=== PATIENT | female | born 1945 | race Caucasian/White ===

== ENCOUNTER 2016-11-27 00:14 | Day surgery (SDC) | payer MEDICARE, OTHER ==
[~2016-11-27] VITALS: Ht 167.6 cm; Wt 81.3 kg
[2016-11-27] VITALS (10 sets, daily range): BP systolic 116–147; BP diastolic 62–87; PULSE 65–85; RESP 16–22; O2SAT 93–98
[~2016-11-27 00:14] MED LIST: AMOX-363 PO; ASPI-973 PO; CHLO50TA PO; CYAN-2 SL; GABA600T2 PO; GLUC100016 PO; LANS30CA PO; MELO-259 PO; NITR100 PO; PANT40TA2 PO; POTA10TA12 PO; POTA10TA19 PO; SIMV80TA4 PO; UBID300C PO; VENL37.587 PO; VENL75TA87 PO
[2016-11-27] MEDS ORDERED: Vancomycin Inj 1,000 MG in IV Premix 1 EACH IV ONE (06:00)
[2016-11-27] MEDS ORDERED: 0.9% Sodium Chloride 250 ML ONE (12:34)
[2016-11-27] MEDS ORDERED: Bupivacaine-MPF 0.5% 30 mL Inj ONE (12:34)
[2016-11-27] MEDS ORDERED: Heparin 5,000 Units/500 mL NS Premix IV ONE (12:34)
[2016-11-27] MEDS ORDERED: Vancomycin 1,000 mg Inj ONE (12:34)
[2016-11-27] MEDS ORDERED: Water for Injection 50 ML IV ONE (12:34)
[2016-11-27 12:36] LABS: EOSINOPHILS % (AUTO) 2.2 % (0-5); MONOCYTES % (AUTO) 18.1 % (4-12); Mean Corpuscular Hemoglobin 27.6 pg (27.0-35.0); Mean Corpuscular Volume 87.6 fL (81-100); NEUTROPHILS % (AUTO) 45.3 % (40-74); Platelet Count 216 bil/L (150-400)
[2016-11-27] MEDS ORDERED: Vancomycin 1,000 mg/200 mL D5W IV ONE (12:37)
[2016-11-27] MEDS ORDERED: fentaNYL-PF 50 mCg/mL 2 mL Inj ONE (13:45)
[2016-11-27] MEDS: 0.9% Sodium Chloride 1,000 ML IV SCH (14:47)
[2016-11-27] MEDS ORDERED: Ondansetron 2 mg/mL 2 mL Inj IVPUSH PRN (14:50)
--- NOTE | 2016-11-27 15:39 | OP ---
[address] [address] OPERATIVE REPORT PATIENT: FLOWER FAIR : 1945 MR#: [id number] ADMIT: 11/27/2016 JOB ID: [id number] DATE OF SURGERY: 11/27/2016 PREOPERATIVE DIAGNOSIS(ES): Mobitz II atrioventricular block. POSTOPERATIVE DIAGNOSIS(ES): Mobitz II atrioventricular block. PROCEDURES PERFORMED: 1. Dual-chamber pacemaker implantation. 2. Fluoroscopy. SURGEON: Ayaan Dickens MD, electrophysiology attending. DIRECTOR OF VOCATIONAL TRAINING: Yong Garcia. IMPLANTED DEVICES: 1. [place] [employer] Accolade MRI pulse generator model L331, serial #[id number]. 2. Right atrial lead [place] [employer] Ingevity MRI model 7741, serial #[id number]. 3. RV lead [place] [employer] Ingevity MRI model 7742, serial #[id number]. INDICATION: The patient is a pleasant 70-year-old woman with preserved LV function and intermittent Mobitz II AV block. After a discussion of the risks and benefits of pacemaker implantation, she opted to proceed. PROCEDURAL DESCRIPTION: Following informed signed consent, the patient was taken to the EP laboratory in a fasting, nonsedated state where she was prepped and draped in the usual sterile fashion. The left infraclavicular region was infiltrated with 40 cc of a 50/50 mixture of bupivacaine and lidocaine. Once adequate anesthesia had been achieved, a 3 cm incision was performed 2 cm below the left clavicle. Dissection was carried down to the pectoralis fascia, and a pocket was then fashioned using a combination of electrocautery and blunt dissection. Once adequate hemostasis had been achieved, access to the left axillary vein was gotten over the first rib with a micropuncture needle twice to deploy two 0.035, 3-mm J-guidewires. Over the first of these, a 6-Upper Sorbian tear-away sheath was advanced. Once the guidewire was removed, an active fixation lead was advanced to the RV outflow tract, ultimately the RV apex. The lead was affixed in position using its associated active fixation screw. It was connected to the external analyzer and demonstrated appropriately sensed R waves, impedance, capture threshold. The lead was checked in 10 V, and there was no evidence of diaphragmatic stimulation. Attention was now paid to placement of the right atrial lead. Over the other previously deployed J-guidewire, another 6-Upper Sorbian tear-away sheath was advanced. Once the guidewire was removed, an active fixation lead was advanced to the right atrial appendage. It was affixed in position using associated active fixation screw. The lead was connected to the external analyzer and demonstrated appropriately sensed P waves, impedance, capture threshold. Lead was checked in 10 V, and there was no evidence of diaphragmatic stimulation. Once the position and redundancy of both leads had been confirmed in multiple fluoroscopic views, the leads were anchored to the prepectoralis fascia using the associated anchoring sleeves and 2-0 Ethibond sutures. The pocket was then copiously with antibiotic solution. The leads were connected to a generator. The generator was placed in the pocket and affixed to the floor of the pocket using 1-0 Ti-Cron suture. The incision was then closed with running layers of absorbable suture. The wound was dressed with skin adhesive and a small dressing. At the end of the procedure, the needle, sponge, instrument counts were all correct. COMPLICATIONS: None. ESTIMATED BLOOD LOSS: Negligible. DEVICE MEASURED DATA: 1. Right atrial lead 5.9 mV, 1 V at 0.4 msec, 644 ohms. 2. RV lead 17.3 mV, 0.5 V at 0.4 msec, 810 ohms. FINAL PROGRAM PARAMETERS: DDD 60-130 beats per minute. IMPRESSION: Successful dual-chamber pacemaker implantation. PLAN: 1. Stat portable chest x-ray. 2. PA and lateral chest x-ray in the morning. 3. Device interrogation in the morning. 4. IV vancomycin through tomorrow. 5. Doxycycline 100 mg p.o. daily x7 days. 6. Wound check in one week. ATTENDING STATEMENT: Ayaan Dickens MD, electrophysiology attending, was present for and supervised/performed all aspects of this procedure.
--- NOTE | 2016-11-27 15:46 | DRSVH ---
PROCEDURE: X-RAY CHEST ONE VIEW, PORTABLE ([id number]) INDICATIONS: For new leads placed TECHNIQUE: One view of the chest was acquired. COMPARISON: [facility], , CHEST 1 VIEW, 09/19/2016, 6:53. FINDINGS: Surgical changes and devices: There is a new dual-lead cardiac pacemaker. Surgical clips are unchange d in the right axilla. Lungs and pleura: No pleural effusions or pneumothorax. Lungs are clear. Mediastinum: Mediastinal contours appear normal. Heart size is normal. Bones and chest wall: No suspicious bony lesions. Overlying soft tissues appear unremarkable. IMPRESSION: No acute cardiopulmonary findings. No pneumothorax after pacemaker placement. Dictated by: Candice Jaime M.D. on 11/27/2016 at 15:44 Approved by: Candcie Jaime M.D. on 11/27/2016 at 15:44
--- NOTE | 2016-11-27 17:02 | NUR ---
Report called to Kristen Lechuga r.n.Pt has gotten out of bed independently, voided in bathroom. remains in sinus rhythm, v.s.s.
[2016-11-27] MEDS: HYDROcodone-APAP 5-325 mg Tablet PO PRN ×2 (17:10→22:53)
--- NOTE | 2016-11-27 17:28 | NUR ---
PT TX TO ROOM 3006 VIA WHEELCHAIR IN STABLE CONDITION.HANDOFF TO NURSE CARO AT BEDSIDE. VICODIN 1 TAB GIVEN PRIOR TO TX FOR ACHING PAIN AT PACER SITE 03/25. SPOUSE AT BEDSIDE. Addendum: 11/27/16 at 1729 by SHEELA VENTURA RN PACER SITE DRESSING WITHOUT BLEEDING, SITE WITHOUT HEMATOMA.
--- NOTE | 2016-11-27 17:56 | NUR ---
Admit to [facility] Patient report called by BLAINE nurse. Patient arrived to [facility] room 3006 via wheelchair around 1715. Patient was able to transfer independently to bed. Patient had 2/10 pain to pacemaker site. Patient oriented to room, staff, call light, television, and visiting hours. Patient food arrived and was given ice water.
[2016-11-27] MEDS: Nitrofurantoin Monohyd-Macrocryst 100 mg Capsule PO SCH (20:40)
[2016-11-27] MEDS: Potassium Citrate ER 10 mEq ER24 Tablet PO SCH (22:48)
[2016-11-28 00:30] VITALS: BP 151/89; PULSE 60; RESP 20; O2SAT 98
[2016-11-28] MEDS: 0.9% Sodium Chloride 1,000 ML IV SCH ×2 (00:47→03:56)
[2016-11-28] MEDS ORDERED: Vancomycin Inj 1,000 MG in IV Premix 1 EACH IV ONE (02:50)
[2016-11-28 05:38] VITALS: PULSE 66
[2016-11-28 06:06] VITALS: BP 135/83; PULSE 60; RESP 20; O2SAT 99
[2016-11-28] MEDS ORDERED: Pantoprazole 40 mg ER24 Tablet PO SCH (06:30)
[2016-11-28 08:00] VITALS: PULSE 60
[2016-11-28] MEDS: Potassium Citrate ER 10 mEq ER24 Tablet PO SCH (08:30)
[2016-11-28] MEDS ORDERED: Venlafaxine XR 75 mg ER24 Capsule PO SCH (08:30)
--- NOTE | 2016-11-28 09:28 | DIS ---
[address] [address] DISCHARGE SUMMARY PATIENT: FLOWER FAIR : 1945 MR#: [id number] ADMIT: 11/27/2016 JOB ID: [id number] DIS: DISCHARGE DIAGNOSES: 1. Mobitz II atrioventricular block. 2. History of recurrent bladder infections in the setting of prior bladder cancer. DISCHARGE MEDICATIONS: 1. Aspirin 81 mg p.o. daily. 2. Chlorthalidone 50 mg p.o. daily. 3. Cyanocobalamin 100 mcg sublingual. 4. Gabapentin 600 mg p.o. b.i.d. 5. Glucosamine. 6. Lansoprazole. 7. Meloxicam. 8. Nitrofurantoin (Macrobid) 100 mg p.o. b.i.d. 9. Protonix 40 mg p.o. daily. 10. Simvastatin 80 mg p.o. daily. 11. CoQ10. 12. Venlafaxine ER 75 mg p.o. daily. PROCEDURES PERFORMED: Dual-chamber pacemaker implantation. CONSULTATIONS: None. IDENTIFICATION/BRIEF HOSPITAL COURSE: The patient is a pleasant 70-year-old woman with preserved LV function, admitted for pacemaker implantation due to intermittent Mobitz II AV block. She underwent her pacemaker implant uneventfully and remained hemodynamically stable and asymptomatic overnight. Her chest radiograph shows stable lead position and no pneumothorax. Her device interrogation shows excellent sensing and thresholds. She will be discharged home for close followup. DISPOSITION: To home with friends and family. DIET: Cardiac diet. LIMITATIONS: Standard post implant precautions. FOLLOWUP: In one week, follow up with pacemaker clinic. In six weeks, follow up with Vinicio Sales PA-C.
[2016-11-28] MEDS: Nitrofurantoin Monohyd-Macrocryst 100 mg Capsule PO SCH (09:32)
--- NOTE | 2016-11-28 10:03 | NUR ---
Discharge Dr Dickens went over discharge instructions and followup appointment with pt who verbally acknowledged understanding. Pace maker booklet given to pt previous night. removed to patent intact IVs. Patient left on foot to lobby to meet . no s/s of distress at time of dc
--- NOTE | 2016-11-28 10:34 | DRSVH ---
PROCEDURE: X-RAY CHEST, TWO VIEWS ([id number]) INDICATIONS: For new lead placement TECHNIQUE: 2 views of the chest were acquired. COMPARISON: [facility], CR, XR CHEST 1VW (PORTABLE), 11/27/2016, 15:18. FINDINGS: Surgical changes and devices: Dual lead cardiac pacer Lungs and pleura: No pleural effusions or pneumothorax. Lungs are clear. Mediastinum: Mediastinal contours are normal. Heart size is normal. Bones and chest wall: No suspicious bony abnormalities. Soft tissues appear unremarkable. IMPRESSION: No acute disease or pneumothorax. Dictated by: Venkatesh Esqueda M.D. on 11/28/2016 at 10:33 Approved by: Venkatesh Esqueda M.D. on 11/28/2016 at 10:33
[2017-01-30] MEDS ORDERED: SIMV80TA4 PO (09:31)
[2017-01-30] MEDS ORDERED: MELO7.5O PO (09:31)
[2017-01-30] MEDS ORDERED: GABA600T2 PO (09:31)
[2017-01-30] MEDS ORDERED: LANS30CA PO (09:31)
== END 2016-11-28 10:10 | disposition home or self-care (01) ==
LOC: SOUO 00:14 → MPC 17:18 → SOUO 11-28 10:10
PROVIDERS: ATTEND Internal Medicine Cardiovascular Disease
DX: I44.1 Atrioventricular block, second degree (principal); Z87.440 Personal history of urinary (tract) infections; Z85.51 Personal history of malignant neoplasm of bladder; Z79.82 Long term (current) use of aspirin
CPT/HCPCS: 33208; 71010; 71020; 80048; 85025; 85610; 93005; C1769; C1785; C1892; C1898; J1644; J2250; J3370; J7030; J7050; Q9967

== ENCOUNTER 2017-02-02 05:48 | Day surgery (SDC) | payer MEDICARE, OTHER ==
[2017-02-02] VITALS (14 sets, daily range): BP systolic 107–147; BP diastolic 53–74; PULSE 60–74; RESP 12–24; O2SAT 92–98
[~2017-02-02] VITALS: Ht 167.6 cm; Wt 83.5 kg
[~2017-02-02 05:48] MED LIST changes: -AMOX-363 PO; +Lactated Ringer's 1,000 ML IV ONE; -MELO-259 PO; +MELO7.5O PO; -NITR100 PO; -POTA10TA12 PO; -UBID300C PO; -VENL75TA87 PO
[2017-02-02] MEDS ORDERED: Propofol 10,000 mCg/mL 20 mL Inj ONE (05:49)
[2017-02-02] MEDS ORDERED: Dexamethasone 4 mg/mL Inj ONE (05:49)
[2017-02-02] MEDS ORDERED: Phenylephrine/NS 100 mCg/mL 10 mL Syringe IVPUSH ONE (05:49)
[2017-02-02] MEDS ORDERED: Ondansetron 2 mg/mL 2 mL Inj ONE (05:49)
[2017-02-02] MEDS ORDERED: fentaNYL-PF 50 mCg/mL 2 mL Inj ONE (05:49)
[2017-02-02] MEDS ORDERED: Morphine PF 1 mg/mL 10 mL Inj ONE (05:49)
[2017-02-02] MEDS ORDERED: Rocuronium 10 mg/mL 5 mL Inj ONE (05:49)
[2017-02-02] MEDS ORDERED: Remifentanil 1 mg/3 mL Inj ONE (05:49)
[2017-02-02] MEDS ORDERED: vit c PO (06:58)
[2017-02-02] MEDS ORDERED: UBID100C16 PO (06:58)
[2017-02-02] MEDS ORDERED: Bupivacaine 0.5%/EPI 50 mL Inj INFILTRATE ONE (07:25)
[2017-02-02] MEDS ORDERED: Lactated Ringer's 500 ML IV PRN (08:04)
[2017-02-02] MEDS ORDERED: Lactated Ringer's 1,000 ML IV SCH (08:04)
--- NOTE | 2017-02-02 08:04 | PCM.HPANE ---
Patient Data Date of Service: Feb 02, 2017 (0700) Surgeon Admitting Provider: Attending Provider:Farooq Russell MD Primary Care Physician:Lizy Issa MD Other Provider:Larry Esquivel Anesthesia Reason for Visit Hyperparathyroidism Ht/WT & BMI Height (Feet): 5 Height (Inches): 6.00 Weight (Kilograms): 83.500 Body Mass Index 29.00 Allergies Coded Allergies: hydrochlorothiazide (Verified Allergy, Severe, Hives, 09/11/09) metoclopramide HCl (Verified Allergy, Severe, Tardive Dyskinesia, 10/25/10 ) fesoterodine (Verified Allergy, Intermediate, blurry vision, 08/08/16) tolterodine (Verified Allergy, Intermediate, blurry vision, 08/08/16) TAPE (Verified Adverse Reaction, Intermediate, Rash, blisters, 04/13/08) Past Anesthesia History Anesthesia History: Denies:: Abnormal Airway, Anesthesia Reactions, Difficult Intubation, Fam Anesthesia Reaction, Fam Malignant Hypertherm, Malignant Hyperthermia Diabetes History Hx Diabetes?: No Current Bedside Blood Glucose: 106 MRSA MRSA: No Medications Hypertension Medication: Yes Home Meds Incl Beta Alec: No Reported Medications [vit c] No Conflict Check1,000 Po Daily 02/02/17 Ubidecarenone (Coq-10)100 Mg Xmuacqh937 Mg PO 02/02/17 Simvastatin 80 Mg Itsysb44 Mg PO HS 30 Days Ref 0 01/30/17 Meloxicam 7.5 Mg/5 Ml Oral.susp7.5 Mg PO DAILY 30 Days Ref 0 01/30/17 Lansoprazole 30 Mg Capsule.dr30 Mg PO DAILY #30 CAPSULE Ref 0 01/30/17 Gabapentin 600 Mg Weecdg856 Mg PO BID Ref 0 01/30/17 Glucosamine Sulfate 2Kcl (Glucosamine)1,000 Mg Tablet1,500 Mg PO 11/26/16 Venlafaxine ER 37.5 Mg Tab.er.2437.5 Mg PO DAILY Ref 0 11/26/16 Potassium Citrate ER 10 Meq Nkjsnd04 Meq PO BID Ref 0 TAKE WITH FOOD 11/26/16 Cyanocobalamin (Vitamin B-12) (B-12)1,000 Mcg/Ml Drops1,000 Mcg SL 11/26/16 Chlorthalidone 50 Mg Vudyux50 Mg PO DAILY 11/26/16 Aspirin 81 Mg Jubiaa70 Mg PO DAILY Ref 0 11/26/16 Discontinued Reported Medications Pantoprazole DR (Protonix)40 Mg Larmsg89 Mg PO DAILY Ref 0 11/26/16 Amoxicillin/Clav K 500-125 mg (Augmentin 500-125 mg)1 Each Tablet1 Tablet PO BID #20 TABLET Ref 0 11/26/16 Potassium Chloride ER 10 Meq Wwnlzy77 Meq PO DAILY Ref 0 TAKE WITH FOOD 08/08/16 Nitrofurantoin Monohyd/M-Cryst (MacroBid)100 Mg Hfvgmyp729 Mg PO BID Ref 0 08/08/16 Venlafaxine ER 75 Mg Tab.er.2475 Mg PO DAILY #30 TABLET Ref 0 03/08/15 Simvastatin 80 Mg Bvbzer45 Mg PO HS 30 Days Ref 0 03/08/15 Meloxicam 7.5 Mg Tablet7.5 Mg PO DAILY 30 Days Ref 0 03/08/15 Lansoprazole 30 Mg Capsule.dr30 Mg PO DAILY #30 CAPSULE Ref 0 03/08/15 Gabapentin 600 Mg Hjxegj689 Mg PO BID 30 Days Ref 0 03/08/15 Ubidecarenone (Co Q-10)300 Mg Wdeanic276 Mg PO DAILY 03/08/15 History History of ENT Problems?: Yes HEENT History: Positive for:: Cataracts Hearing Problem Sinus Problem (past hx of sinus surgery) TMJ Denies:: Abnormal Airway Difficult Intubation Dysphagia Hx of Heart Problems?: Yes Cardiovascular History: Positive for:: Cardiac Surgery (pacemaker) Hypertension Pacemaker (device form here- magnet) Denies:: AICD Abdominal Aortic Aneurism Atrial Fibrillation Chest Pain Congestive Heart Failure Edema Heart Murmur Irregular Heartbeat Thrombophlebitis Valvular Heart Disease Hx of Respiratory Problem?: Yes Respiratory History: Positive for:: Asthma Chest Surgery Cough (hx of recurrent bronchitis) Dyspnea Denies:: COPD Emphysema Hemoptysis Oxygen Administration Pneumonia Pulmonary Embolism Tuberculosis Use of C-PAP Machine Hx Neurologic Problems?: Yes Neurological History: Denies:: Alzheimer's Disease CVA Dementia Dizziness Headaches Multiple Sclerosis Parkinson's Disease Seizures Other Neurological Pertinent: past hx of hemangioma- brain 2008 Hx of GI Problems?: Yes Gastrointestinal History: Positive for:: Diverticulitis Gall Bladder Disease (removed) Gastroesphageal Reflux Heartburn Denies:: Cirrhosis Gastrointestinal Bleeding Hepatitis Hiatal Hernia Rectal Bleeding Hx of Problems?: Yes Genitourinary History: Positive for:: Kidney Stones (past hx of) Urinary Tract Infection Denies:: HX of Hemodialysis HX of Peritoneal Dialysis: No Other Pertinent History: past hx of bladder ca Female Hx: Positive for:: Endometriosis Problems with Breasts? (hx of bilateral mastectomy) Denies:: Currently (hysterectomy) Pelvic Inflammatory Skin History: Denies:: History Skin Disorders? Pressure Ulcers Hx Musculoskeletal Problems?: Yes Musculoskeletal History: Positive for:: Back Injury Degenerative Joint Fibromyalgia Joint Replacement (hips) Denies:: Musculoskeletal Trauma Hx of Psycho/Social Problems?: Yes Psycho Social History: Positive for:: Anxiety Hx Depression Denies:: Bipolar Disorder Suicide Attempt Hx Surgeries?: Yes (kidney stones removed, hip, mastectomy, GERD,) Hx Any Other Health Problems?: Yes Other History: Positive for:: Cancer (bladder) Hospitalization Denies:: Endocrine Disease Thyroid Disease (parathyroid current admission problem) History Blood Transfusions: Denies:: Blood Transfuse Reaction Blood Transfusions Hx Diabetes: NoBedside Blood Glucose: 106 Hx Alcohol Use: YesAlcoholic Drinks Per Day: gin dailyHx Substance Use: No Smoking Status: Former Smoker Have You Smoked inLast 12 mo: No Stop/Bang S-Snoring: Do You Snore Loudly: No T-Tired: feel tired, fatigued: Yes O-Obsered: Observed not breath: No P-Blood Pressure: treated: Yes B- Body Mass Index > 35 kg/m2: No A- Age over 50: Yes N- Neck Large Circumference: No G- Gender Male: No MARQUIS Total Score: 3 Risk Assessment Category Category 1A: Patient has history of documented sleep apnea, and HAS NOT received any narcotic, sedative or anesthesia administration during this stay. Category 1B: Patient has history of documented sleep apnea, and HAS received any narcotic , sedative or anesthesia administration during this stay Category 2: Patient has SUSPECTED Obstructive Sleep Apnea, and HAS received any narcotic , sedative or anesthesia administration during this stay. Category 3: Patient has SUSPECTED Obstructive Sleep Apnea and HAS NOT received narcotic, sedative or anesthesia administration during this stay. Category 4: Outpatient in Procedural Areas with known sleep apnea or who screen positive for High Risk via the STOP/BANG questionnaire. Exam Exam Vital Signs Vital Signs Date Time Temp Pulse Resp B/P Pulse Ox O2 Delivery O2 Flow Rate FiO2 02/02/17 06:48 35.7 60 16 147/70 97 Room Air 02/02/17 06:26 35.7 60 16 147/70 97 Room Air General Appearance: Alert, Oriented X3, Cooperative, No Acute Distress HEENT/AIRWAY: MP 2, Neck Movement (FROM), Mouth Opening (3 FBMO) Lungs: Clear to Auscultation, Normal Air Movement Heart: Exam Unremarkable, Regular Rate/Rhythm, No Murmurs/Rubs/Gallops Meds/Labs/Diagnostics Admission Meds Current Medications Lactated Ringer's (Lr) 1,000 ml @ 120 mls/hr Q8H20M ONCE IV Last administered on 02/02/17t 05:57; Start 02/02/17 at 05:00; Stop 02/02/17 at 13:19 Bedside Blood Glucose: 106 Plan Impression Patient chart reviewed, patient interviewed and anesthestic plan with risks, benefits, and alternatives discussed, and informed consent obtained. NPO Status: water at 0400 ASA Physical Status: ASA3 Severe Disease (pacemaker) Anesthetic Support Modalities: Arterial Line (right radial arterial line risks/ benefits discussed. AQA. Will perform for intraoperative blood draws and hemodynamic monitoring) Anesthetic Plan: GA Bene/Risks/Altern/Consents: Yes HP Complete Prior to Induction: Yes Flakito Andre MD Feb 02, 2017 07:52
[2017-02-02] MEDS ORDERED: Ondansetron 2 mg/mL 2 mL Inj IVPUSH PRN (08:05)
[2017-02-02] MEDS ORDERED: hydrALAZINE 20 mg/mL Inj IVPUSH PRN (08:05)
[2017-02-02] MEDS ORDERED: fentaNYL-PF 50 mCg/mL 2 mL Inj IVPUSH PRN (08:05)
[2017-02-02] MEDS ORDERED: EPHEDrine Sulfate 50 mg/mL Inj IVPUSH PRN (08:05)
[2017-02-02] MEDS ORDERED: Phenylephrine 10,000 mCg/mL Inj IVPUSH PRN (08:05)
[2017-02-02] MEDS ORDERED: Labetalol 5 mg/mL 4 mL Inj IV PRN (08:05)
[2017-02-02] MEDS ORDERED: HYDROmorphone 1 mg/mL Inj IVPUSH PRN (08:05)
[2017-02-02] MEDS ORDERED: HYDROcodone-APAP 5-325 mg Tablet PO PRN (11:25)
--- NOTE | 2017-02-02 11:55 | PCM.ANEP2 ---
Post Anesthesia Evaluation ASA/CMS Post Anesthesia VS in Patient's Normal Range?: Yes Resp Stable; Airway Patent?: Yes CV Function & Hydration Stable: Yes Mental Status Recovered?: Yes Pain control Satisfactory?: Yes N/V Control Satisfactory?: Yes Flakito Andre MD Feb 02, 2017 11:55
--- NOTE | 2017-02-02 11:55 | PCM.ANEP1 ---
Post Anesthesia Phase 1 PACU Phase 1 Assessment Date of Service: Feb 02, 2017 (0700) Vital Signs Vital Signs Date Time Temp Pulse Resp B/P Pulse Ox O2 Delivery O2 Flow Rate FiO2 02/02/17 11:40 36.4 61 18 128/70 94 Nasal Cannula 3 02/02/17 11:30 60 15 124/70 93 Nasal Cannula 3 02/02/17 11:25 60 16 129/68 93 Nasal Cannula 3 02/02/17 11:20 63 14 128/60 94 Nasal Cannula 2 02/02/17 11:15 62 12 127/68 96 Nasal Cannula 2 02/02/17 11:10 65 17 136/74 97 Simple Mask 8 02/02/17 11:07 36.9 74 24 147/74 98 Simple Mask 8 02/02/17 06:48 35.7 60 16 147/70 97 Room Air 02/02/17 06:26 35.7 60 16 147/70 97 Room Air Anesthetic Administered: GA Level of Alertness: Awake, talking FERNANDEZ's with Equal Strength: Yes Pain: No Nausea or Vomiting: No Oxygen Delivery: Simple Mask Lungs: Clear to Auscultation, Normal Air Movement Dermatome Level: Full Sensation Flakito Andre MD Feb 02, 2017 11:55
--- NOTE | 2017-02-02 22:48 | OP ---
[address] [address] OPERATIVE REPORT PATIENT: FLOWER FAIR : 1945 MR#: [id number] ADMIT: 02/02/2017 JOB ID: [id number] DATE OF SURGERY: 02/02/2017 PREOPERATIVE DIAGNOSIS(ES): Symptomatic primary hyperparathyroidism. POSTOPERATIVE DIAGNOSIS(ES): 1. Symptomatic primary hyperparathyroidism. 2. Right superior parathyroid adenoma. 3. Normal left superior parathyroid. OPERATION: Bilateral parathyroid exploration with excision of a right superior parathyroid adenoma, identification of a left superior parathyroid gland, and excision of thyrothymic ligament. SURGEON: Farooq Russell MD. ICE CREAM MAKER: Syd Gonsales MD. INDICATIONS: The patient is a 71-year-old female who has documented hyperparathyroidism with elevated calciums and simultaneous PTH, and with a normal urinary 24 hour calcium. She had nonlocalization by both a parathyroid scan and a parathyroid CT scan. She developed a heart block between the time that I first saw her and has had a pacemaker placed. After discussing options with the patient, it was elected to proceed with a four gland parathyroid exploration. FINDINGS: She had a grossly normal histologically confirmed left superior parathyroid adenoma. A Prolene suture was placed adjacent to it. I never did identify an inferior parathyroid, although tissue from the left and right inferior poles was submitted for frozen section, but turned out to be thyroid tissue. The adenoma was ultimately found to be the right superior. It was clearly enlarged and just prior to removing it her PTH was 84, and at 5 minutes 32, and at 10 minutes 22. It was lying in the tracheoesophageal groove superior to the recurrent laryngeal nerve. The superior pole was mobilized in order to identify it. PROCEDURE: At the beginning and end of the operation, the SCOAP checklist was completed. A general endotracheal anesthetic was induced. An arterial line was placed to allow blood draws. Sshe was prepped and draped in usual fashion. The incision was designed and infiltrated with 0.5% bupivacaine with epinephrine. After incising the skin, the platysma was divided with cautery and the subplatysmal flaps were created. The strap muscles were in midline. I elected to explore the left side first. After mobilizing the strap muscles off of the thyroid gland, I mobilized the inferior pole by dividing vascular branches as they entered the inferior pole, which then allowed elevation of it. There was a small gland that ultimately by histology was proven to be a small thyroid nodule, but I initially thought it was the inferior gland. I then mobilized the left superior pole and there was a small thyroid nodule that grossly looked consistent with a parathyroid. This was biopsied and it was proven to be thyroid tissue. Further posterior and medial dissection within the tracheal esophageal groove identified and confirmed histologically a normal size left superior gland. I placed a 4-0 Prolene suture adjacent to it. The recurrent laryngeal nerve was also identified. The right side was then explored. I initially explored the inferior pole similarly on the left and also a small nodule was identified. I thought it was thyroid and I got a frozen section on it after removing it, and it was confirmed to be thyroid tissue. Exploration of the superior pole initially did not reveal the parathyroid I again thought I identified as a normal superior pole gland on the right, but frozen section showed that this was thyroid tissue. I explored the thyrothymic ligament without clear identification of either normal or abnormal parathyroid glands, and I removed that tissue and submitted to Pathology. Ultimately, I did further exploration of the superior pole on the right, and upon being more anterior and medial rotation of the superior pole I identified the recurrent nerve, and just above that, and just superior and posterior to the nerve in the tracheoesophageal groove was a clearly enlarged gland. I carmen parathyroid hormone levels prior to removing it and then with the use of bipolar cautery it was completely removed, with frozen section confirmed to be parathyroid tissue that appeared hypercellular. At five and 10 minutes after removal, I carmen additional parathyroid hormone levels and with the pre-removal level 84, at 5 minutes 32, and at 10 minutes 22, confirming a greater than 50% fall. With that, I elected not to do any further searching for the inferior glands. The strap muscles were then closed with running 3-0 Vicryl, the platysma with running 3-0 Vicryl. The skin with running subcuticular 4-0 Vicryl and Dermabond. The estimated blood loss was 15 cc. There were no apparent complications. The final sponge, needle and instrument counts were announced as correct and the patient was returned to recovery room in stable condition. Critical assistance provided by Syd Gonsales MD [facility]ENTERBlank
== END 2017-02-02 23:59 | disposition home or self-care (01) ==
LOC: SAS 05:48
PROVIDERS: ATTEND Surgery
DX: E21.3 Hyperparathyroidism, unspecified (principal); D34 Benign neoplasm of thyroid gland; I10 Essential (primary) hypertension; J45.909 Unspecified asthma, uncomplicated; M79.7 Fibromyalgia; K21.9 Gastro-esophageal reflux disease without esophagitis; K57.30 Diverticulosis of large intestine without perforation or abscess without bleeding; F41.9 Anxiety disorder, unspecified; F32.9 Major depressive disorder, single episode, unspecified; Z87.440 Personal history of urinary (tract) infections; Z85.51 Personal history of malignant neoplasm of bladder; Z87.442 Personal history of urinary calculi; Z85.3 Personal history of malignant neoplasm of breast; Z87.891 Personal history of nicotine dependence; Z79.82 Long term (current) use of aspirin; Z95.0 Presence of cardiac pacemaker; Z96.643 Presence of artificial hip joint, bilateral
CPT/HCPCS: 36415; 60500; 82310; 83970; J0131; J1100; J2250; J2274; J2370; J2405; J3010; J7120